=== PATIENT | male | born 1980 | race Caucasian/White ===

== ENCOUNTER 2020-11-23 20:47 | Emergency (ER) | payer MEDICAID ==
[~2020-11-23] VITALS: Ht 170.2 cm; Wt 63.6 kg
[2020-11-23 20:58] VITALS: BP 123/69
--- NOTE | 2020-11-23 22:05 | NUR ---
Not in lobby
== END 2020-11-23 22:58 | disposition left against medical advice (07) ==
LOC: ER 20:48
DX: J02.9 Acute pharyngitis, unspecified (principal); Z53.21 Procedure and treatment not carried out due to patient leaving prior to being seen by health care provider